=== PATIENT | female | born 1975 | race Caucasian/White ===

== ENCOUNTER → 2017-08-18 14:36 | Outpatient (CLI) | payer OTHER, SELFPAY ==
[2017-08-18 15:17] LABS: Basophils # 0.1 K/mm3 (0-0.2); Basophils % 0.5 % (0.1-2.0); Eosinophils # 0.1 K/mm3 (0.0-0.4); Eosinophils % 1.2 % (0.1-12.0); Hematocrit 37.2 % (37.0-47.0); Hemoglobin 11.5 g/dL (12.2-16.2); Lymphocytes # 2.7 K/mm3 (0.7-4.5); Lymphocytes % 29.2 K/mm3 (10-50); Mean Corpuscular Hemoglobin 25.3 pg (27.0-31.2); Mean Corpuscular Volume 81.7 fl (81-99); Monocytes # 0.6 K/mm3 (0.1-1.0); Monocytes % 5.9 % (1.7-9.3); Neutrophils # 5.9 K/mm3 (1.8-7.8); Neutrophils % 63.2 % (37.0-80.0); Platelet Count 270 K/mm3 (142-424); Red Blood Count 4.55 M/mm3 (4.20-5.40); Red Cell Distribution Width 14.8 % (11.5-17.5); White Blood Count 9.3 K/mm3 (4.8-10.8)
[2017-08-18 15:40] LABS: Alanine Aminotransferase 18 U/L (12-78); Albumin Level 3.4 gm/dL (3.4-5.0); Albumin/Globulin Ratio 1.1 (1.1-1.8); Alkaline Phosphatase 141 U/L (46-116); Anion Gap 11.2 mEq/L (5-15); Aspartate Amino Transferase 18 U/L (15-37); Bilirubin,Total 0.7 mg/dL (0.2-1.0); Blood Urea Nitrogen 8 mg/dL (7-18); Calcium 8.3 mg/dL (8.5-10.1); Carbon Dioxide 28 mmol/L (21.0-32.0); Chloride 107 mmol/L (98-107); Chol/HDL Ratio 2.7 (1-3.5); Cholesterol 107 mg/dL (140-200); Creatinine,Serum 0.65 mg/dL (0.55-1.02); Estimated Glomerular Filt Rate 100 ml/min (>60); Ferritin 7 ng/mL (8-388); GFR (African American) 121 ML/MIN (>60); Globulin 3.2 gm/dl (1.3-3.2); Glucose 157 mg/dL (74-106); HDL Cholesterol 40 mg/dL (29-89); LDL Cholesterol 57 mg/dL (0-130); Potassium 4.2 mmoL/L (3.5-5.1); Sodium 142 mmol/L (136-145); Thyroid Stimulating Hormone 0.13 uIU/ml (0.358-3.740); Total Protein,Serum 6.6 gm/dL (6.4-8.2); Triglycerides 52 mg/dL (30-200); VLDL Cholesterol 10 mg/dL (0-40)
== END ==
PROVIDERS: PCP Internal Medicine Adolescent Medicine; Visit Provider Internal Medicine Adolescent Medicine
DX: D50.9 Iron deficiency anemia, unspecified (principal); E78.5 Hyperlipidemia, unspecified; E11.9 Type 2 diabetes mellitus without complications; E03.9 Hypothyroidism, unspecified
CPT/HCPCS: 36415; 80053; 80061; 82728; 83036; 84443; 85025

== ENCOUNTER → 2017-08-19 11:48 | Outpatient (POV) | payer OTHER, SELFPAY | PROVIDERS: Family Provider Internal Medicine Adolescent Medicine; PCP Internal Medicine Adolescent Medicine; Visit Provider Dentist | DX: Z00.00 Encounter for general adult medical examination without abnormal findings (principal) ==

== ENCOUNTER → 2017-12-02 08:58 | Outpatient (POV) | payer OTHER, SELFPAY | PROVIDERS: Family Provider Internal Medicine Adolescent Medicine; PCP Internal Medicine Adolescent Medicine; Visit Provider Dentist | DX: Z00.00 Encounter for general adult medical examination without abnormal findings (principal) ==

== ENCOUNTER → 2018-01-17 09:15 | Outpatient (CLI) | payer OTHER, SELFPAY | PROVIDERS: Visit Provider Internal Medicine Adolescent Medicine | DX: E11.9 Type 2 diabetes mellitus without complications (principal) | CPT/HCPCS: 36415; 83036 ==

== ENCOUNTER → 2018-03-17 11:50 | Outpatient (POV) | payer OTHER, SELFPAY | PROVIDERS: Family Provider Internal Medicine Adolescent Medicine; PCP Internal Medicine Adolescent Medicine; Visit Provider Dentist | DX: Z00.00 Encounter for general adult medical examination without abnormal findings (principal) ==

== ENCOUNTER → 2018-03-28 13:37 | Outpatient (POV) | payer OTHER, SELFPAY | PROVIDERS: Family Provider Internal Medicine Adolescent Medicine; PCP Internal Medicine Adolescent Medicine; Visit Provider Physician Assistant | DX: Z00.00 Encounter for general adult medical examination without abnormal findings (principal) ==

== ENCOUNTER → 2018-05-30 09:31 | Outpatient (CLI) | payer OTHER, SELFPAY ==
[2018-05-30 09:53] LABS: Basophils # 0.1 K/mm3 (0-0.2); Eosinophils # 0.1 K/mm3 (0.0-0.4); Eosinophils % 1.8 % (0.1-12.0); Hematocrit 38.3 % (37.0-47.0); Hemoglobin 12.2 g/dL (12.2-16.2); Lymphocytes # 2.2 K/mm3 (0.7-4.5); Lymphocytes % 28.4 K/mm3 (10-50); Mean Corpuscular HGB Conc 31.9 g/dL (31.8-35.4); Mean Corpuscular Volume 84.8 fl (81-99); Mean Platelet Volume 7.9 fl (7.4-10.4); Monocytes # 0.5 K/mm3 (0.1-1.0); Monocytes % 6.6 % (1.7-9.3); Neutrophils # 4.9 K/mm3 (1.8-7.8); Neutrophils % 62.3 % (37.0-80.0); Platelet Count 297 K/mm3 (142-424); Red Blood Count 4.51 M/mm3 (4.20-5.40); Red Cell Distribution Width 15.3 % (11.5-17.5); White Blood Count 7.8 K/mm3 (4.8-10.8)
[2018-05-30 11:44] LABS: Anion Gap 11.5 mEq/L (5-15); Blood Urea Nitrogen 11 mg/dL (7-18); Calcium 8.5 mg/dL (8.5-10.1); Carbon Dioxide 29 mmol/L (21.0-32.0); Chloride 103 mmol/L (98-107); Estimated Glomerular Filt Rate 78 ml/min (>60); GFR (African American) 95 ML/MIN (>60); Glucose 95 mg/dL (74-106); Potassium 4.5 mmoL/L (3.5-5.1); Sodium 139 mmol/L (136-145)
[2018-05-30 11:45] LABS: Alanine Aminotransferase 19 U/L (12-78); Albumin Level 3.6 gm/dL (3.4-5.0); Albumin/Globulin Ratio 1.1 (1.1-1.8); Alkaline Phosphatase 140 U/L (46-116); Aspartate Amino Transferase 12 U/L (15-37); Chol/HDL Ratio 2.7 (1-3.5); Cholesterol 125 mg/dL (140-200); Ferritin 8 ng/mL (8-388); Free Thyroxine Index 2.8 ug/dL (5.93-13.13); Globulin 3.3 gm/dl (1.3-3.2); HDL Cholesterol 47 mg/dL (29-89); LDL Cholesterol 65 mg/dL (0-130); Thyroid Stimulating Hormone 4.16 uIU/ml (0.358-3.740); Total Protein,Serum 6.9 gm/dL (6.4-8.2); Triglycerides 66 mg/dL (30-200); Triiodothryronine (T3) Uptake 35 % (31-39); VLDL Cholesterol 13 mg/dL (0-40)
[2018-05-30 11:59] LABS: Hemoglobin A1C 9.7 % (0.0-7.0)
[2018-05-31 09:20] LABS: Iron 64 ug/dL (27-159); UIBC 413 ug/dL (131-425)
[2018-05-31 15:55] LABS: Iron Saturation 13 % (15-55); Vitamin B12 >2000 pg/mL (232-1245)
== END ==
PROVIDERS: PCP Internal Medicine Adolescent Medicine; Visit Provider Internal Medicine Adolescent Medicine
DX: E11.9 Type 2 diabetes mellitus without complications (principal); D50.9 Iron deficiency anemia, unspecified; E03.9 Hypothyroidism, unspecified
CPT/HCPCS: 36415; 80053; 80061; 82607; 82728; 83036; 83540; 83550; 84436; 84443; 84479; 85025

== ENCOUNTER → 2018-12-26 09:09 | Outpatient (CLI) | payer OTHER, SELFPAY ==
[2018-12-26 10:54] LABS: Free Thyroxine Index 1.6 ug/dL (5.93-13.13); T4 (Thyroxine) 5.3 ug/dl (4.7-13.3); Thyroid Stimulating Hormone 11.31 uIU/ml (0.358-3.740); Triiodothryronine (T3) Uptake 31 % (31-39)
== END ==
PROVIDERS: Visit Provider Internal Medicine Adolescent Medicine
DX: E11.9 Type 2 diabetes mellitus without complications (principal); Z79.4 Long term (current) use of insulin; E03.9 Hypothyroidism, unspecified
CPT/HCPCS: 36415; 83036; 84436; 84443; 84479

== ENCOUNTER → 2019-04-06 08:11 | Outpatient (CLI) | payer OTHER, SELFPAY ==
[2019-04-06 08:41] LABS: Basophils % 0.5 % (0.1-2.0); Eosinophils # 0.1 K/mm3 (0.0-0.4); Eosinophils % 1.5 % (0.1-12.0); Hematocrit 34.9 % (37.0-47.0); Hemoglobin 10.7 g/dL (12.2-16.2); Lymphocytes # 1.9 K/mm3 (0.7-4.5); Lymphocytes % 28.1 % (10-50); Mean Corpuscular HGB Conc 30.6 g/dL (31.8-35.4); Mean Corpuscular Hemoglobin 24.9 pg (27.0-31.2); Mean Corpuscular Volume 81.3 fl (81-99); Mean Platelet Volume 7.8 fl (7.4-10.4); Monocytes # 0.6 K/mm3 (0.1-1.0); Monocytes % 8.7 % (1.7-9.3); Neutrophils # 4.2 K/mm3 (1.8-7.8); Neutrophils % 61.1 % (37.0-80.0); Platelet Count 362 K/mm3 (142-424); Red Blood Count 4.29 M/mm3 (4.20-5.40); Red Cell Distribution Width 14.6 % (11.5-17.5); White Blood Count 6.9 K/mm3 (4.8-10.8)
[2019-04-06 10:17] LABS: Alanine Aminotransferase 16 U/L (12-78); Albumin Level 3.4 gm/dL (3.4-5.0); Albumin/Globulin Ratio 1.1 (1.1-1.8); Alkaline Phosphatase 129 U/L (46-116); Aspartate Amino Transferase 12 U/L (15-37); Bilirubin,Total 0.8 mg/dL (0.2-1.0); Blood Urea Nitrogen 10 mg/dL (7-18); Calcium 8.7 mg/dL (8.5-10.1); Carbon Dioxide 28 mmol/L (21.0-32.0); Chloride 104 mmol/L (98-107); Chol/HDL Ratio 2.8 (1-3.5); Cholesterol 91 mg/dL (140-200); Creatinine,Serum 0.71 mg/dL (0.55-1.02); Estimated Glomerular Filt Rate 89 ml/min (>60); GFR (African American) 108 ML/MIN (>60); Glucose 97 mg/dL (74-106); HDL Cholesterol 33 mg/dL (29-89); LDL Cholesterol 46 mg/dL (0-130); Sodium 141 mmol/L (136-145); Thyroid Stimulating Hormone 0.01 uIU/ml (0.358-3.740); Total Protein,Serum 6.4 gm/dL (6.4-8.2); Triglycerides 60 mg/dL (30-200); VLDL Cholesterol 12 mg/dL (0-40)
[2019-04-06 15:28] LABS: Hemoglobin A1C 8.3 % (0.0-7.0)
== END ==
PROVIDERS: Visit Provider Internal Medicine Adolescent Medicine
DX: E11.9 Type 2 diabetes mellitus without complications (principal); E78.5 Hyperlipidemia, unspecified; E03.9 Hypothyroidism, unspecified; Z79.4 Long term (current) use of insulin
CPT/HCPCS: 36415; 80053; 80061; 83036; 84443; 85025

== ENCOUNTER 2020-08-05 09:20 | Emergency (ER) | payer OTHER, SELFPAY ==
[2020-08-05 09:39] VITALS: BP 114/68; PULSE 91; RESP 16; TEMP 37.2; O2SAT 98; BMI 38.7
--- NOTE | 2020-08-05 09:44 | HMH.EDUTC ---
[facility] [place] Disposition Clinical Impression: Exposure to COVID-19 virus, Viral syndrome Disposition: Home, Self-Care Condition on Discharge: Good Instructions: DI for COVID-19 (Suspected or Confirmed ), Preventing the Spread of Coronavirus Discharge Instructions Additional Instructions: Drink plenty of fluids. Take tylenol for pain or fever. Return if you begin to have difficulty breathing. Follow up with your regular doctor. GO TO THE ER FOR ANY WORSENING SYMPTOMS Prescriptions: Ondansetron [Zofran 4mg ODT] 4 mg PO Q8HP PRN #12 tab.rapdis PRN Reason: Nausea Transmission Status: Received by [facility] Benzonatate [Tessalon Perle 100mg Cap] 100 mg PO TIDP PRN #30 cap PRN Reason: Cough Transmission Status: Received by [facility] Referrals: Amilcar Denis MD [Primary Care Provider] - Forms: Work/School Release Time of Disposition: 10:00 Medical Decision Making - Medical Records Medical records reviewed: No: I reviewed the patient's medical records. - Livan Inquiry Pt receiving controlled substance: No Vital Signs: 08/05/20 09:39 08/05/20 09:59 Temperature 98.9 F 98.9 F Temperature Source Oral Pulse Rate 91 H Pulse Rate [Left] 91 H Respiratory Rate 16 16 Blood Pressure 114/68 Blood Pressure [Right Arm] 114/68 Blood Pressure Mean [Right Arm] 83 Blood Pressure Source [Right Arm] Automatic Cuff Blood Pressure Position [Right Arm] Sitting 02 Sat by Pulse Oximetry 98 Oxygen Delivery Method Room Air [facility] [place] HPI - General Stated complaint: covid exposure Time Seen by Provider: 08/05/20 09:45 Mode of Arrival: Ambulatory Source of Information: Patient Limitations: No Limitations Description of Symptoms (Recalled from Triage Doc. by RN): Covid test -symptomatic 1 day-congestion, fatigue, temp HEENT Symptoms (Recalled from RN notes): No Resp Symptoms (Recalled from RN notes): Yes Skin Symptoms (Recalled from RN notes): No MS Symptoms (Recalled from RN notes): Yes Functional Status (Recalled from RN notes): wnl - History of Present Illness Provider Complaint: She c/o sinus congestion, low grade fever, and skin sensitivity for the past 2 days. Her daughter has covid. Her daughter lives with her. - Related Data Home Medications Medication Instructions Recorded Confirmed atorvastatin 40 mg tablet PO 90 Days #90 tab 11/03/18 02/02/19 escitalopram oxalate 10 mg tablet PO 90 Days #90 tab 11/03/18 02/02/19 glimepiride 2 mg tablet PO 90 Days #90 tab 11/03/18 02/02/19 insulin detemir U-100 100 unit/mL SQ 85 Days #30 ml 11/03/18 02/02/19 (3 mL) subcutaneous pen levothyroxine 200 mcg tablet PO 90 Days #90 tab 11/03/18 02/02/19 liraglutide 0.6 mg/0.1 mL (18 mg/3 SQ 90 Days #27 ml 11/03/18 02/02/19 mL) subcutaneous pen injector Previous Rx's Medication Instructions Recorded spironolactone 50 mg tablet 50 mg PO DAILY 30 Days #30 tab 12/25/19 fluconazole 150 mg tablet 150 mg PO Q3D 0 Days #2 tab 01/26/20 Benzonatate [Tessalon Perle 100mg 100 mg PO TIDP PRN #30 cap 08/05/20 Cap] Ondansetron [Zofran 4mg ODT] 4 mg PO Q8HP PRN #12 tab.rapdis 08/05/20 Allergies Allergy/AdvReac Type Severity Reaction Status Date / Time No Known Allergies Allergy Verified 08/05/20 09:45 - Worker's Comp Is this a Worker's Comp case?: No Is this an [facility] Worker's Comp?: No Is this a Kevin Worker's Comp?: No [facility] History - Hepatitis A Screen Drug use history?: No High risk sexual behaviors?: No History of sexually transmitted infection?: No Currently employed?: No Childcare worker?: No Do you have indoor plumbing?: Yes Do you have electricity?: Yes Attestation statement:: This patient has been screened for Hepatitis A risk factors. I have reviewed the patient's past medical history: Yes Medical History: Reports:: Diabetes Mellitus Type 2, Hypertension Other Medical History: Reports: Hypothyroidism, Other Laterality Cases: Right: Arthroscopy Knee, B
[2020-08-05 09:59] VITALS: BP 114/68; PULSE 91; RESP 16; TEMP 37.2; O2SAT 98
== END 2020-08-05 10:12 | disposition home or self-care (01) ==
PROVIDERS: Emergency Provider Nurse Practitioner Family; PCP Internal Medicine Adolescent Medicine
DX: Z20.828 Contact with and (suspected) exposure to other viral communicable diseases (principal); E11.9 Type 2 diabetes mellitus without complications; E03.9 Hypothyroidism, unspecified; I10 Essential (primary) hypertension; Z79.899 Other long term (current) drug therapy
CPT/HCPCS: 99201; U0003

== ENCOUNTER → 2020-12-26 08:25 | Outpatient (CLI) | payer OTHER, SELFPAY ==
[2020-12-26 08:54] LABS: Basophils # 0.1 K/mm3 (0-0.2); Basophils % 0.7 % (0.1-2.0); Eosinophils # 0.3 K/mm3 (0.0-0.4); Eosinophils % 3.2 % (0.1-12.0); Hematocrit 38.2 % (37.0-47.0); Hemoglobin 12.4 g/dL (12.2-16.2); Lymphocytes # 1.4 K/mm3 (0.7-4.5); Lymphocytes % 17.4 % (10-50); Mean Corpuscular HGB Conc 32.4 g/dL (31.8-35.4); Mean Corpuscular Hemoglobin 27.3 pg (27.0-31.2); Mean Corpuscular Volume 84.5 fl (81-99); Mean Platelet Volume 8.1 fl (7.4-10.4); Monocytes # 0.5 K/mm3 (0.1-1.0); Monocytes % 6.8 % (1.7-9.3); Neutrophils # 5.6 K/mm3 (1.8-7.8); Neutrophils % 71.9 % (37.0-80.0); Platelet Count 290 K/mm3 (142-424); Red Blood Count 4.52 M/mm3 (4.20-5.40); White Blood Count 7.9 K/mm3 (4.8-10.8)
[2020-12-26 09:08] LABS: Hemoglobin A1C 10.8 % (4.0-6.0)
[2020-12-26 09:19] LABS: Alanine Aminotransferase 14 U/L (12-78); Albumin Level 3.8 g/dl (3.5-5.0); Albumin/Globulin Ratio 1.5 (1.1-1.8); Alkaline Phosphatase 102 U/L (38-126); Anion Gap 8.9 mEq/L (5-15); Aspartate Amino Transferase 18 U/L (14-36); Bilirubin,Total 1.3 mg/dl (0.2-1.3); Blood Urea Nitrogen 8 mg/dl (7-17); Calcium 8.5 mg/dl (8.4-10.2); Carbon Dioxide 26 mmol/L (22.0-30.0); Chloride 103 mmol/L (98-107); Cholesterol 166 mg/dl (140-200); Estimated Glomerular Filt Rate 108 ml/min (>60); GFR (African American) 130 ML/MIN (>60); Globulin 2.5 g/dL (1.3-3.2); Glucose 232 mg/dl (74-100); HDL Cholesterol 42 mg/dl (40-60); Potassium 3.9 mmoL/L (3.5-5.1); Sodium 134 mmol/L (136-145); Total Protein,Serum 6.3 g/dl (6.3-8.2); Triglycerides 84 mg/dl (30-150); VLDL Cholesterol 17 mg/dL (0-40)
[2020-12-26 09:36] LABS: Direct LDL Cholesterol 104.59 mg/dL (100-129)
== END ==
PROVIDERS: Visit Provider Internal Medicine Adolescent Medicine
DX: E11.9 Type 2 diabetes mellitus without complications (principal); E78.5 Hyperlipidemia, unspecified; E03.9 Hypothyroidism, unspecified; Z79.4 Long term (current) use of insulin
CPT/HCPCS: 36415; 80053; 80061; 83036; 84443; 85025

== ENCOUNTER 2021-06-30 12:03 | Day surgery (SDC) | payer OTHER, SELFPAY ==
[2021-06-30] VITALS (11 sets, daily range): BP systolic 120–152; BP diastolic 66–85; PULSE 57–86; RESP 18; TEMP 36.7; O2SAT 96–100; BMI 39.1
[2021-06-30 12:23] LABS: Coronavirus 19, PCR Not Detected (NotDetected); Influenza A, PCR Not Detected (NotDetected); Influenza B, PCR Not Detected (NotDetected)
--- NOTE | 2021-06-30 12:29 | IR_ITS ---
APPROVED REPORT Patient Location: Outpatient Tank Assembler: MILLI Mathews RT (R) PROCEDURES Left heart catheterization Left ventriculogram Selective coronary angiogram INDICATION Unstable angina Informed consent was obtained prior to the procedure. COMPLICATIONS None Estimated Blood Loss: Less than 10 mls TECHNIQUE One percent lidocaine used to anesthetize the right anterior aspect of the wrist. The right radial artery was accessed via the Seldinger technique. A 6 Occitan sheath was placed in the right radial artery. 2.5 mg of verapamil, 800 mcg of nitroglycerin, 1mg Lidocaine and 5000 U Heparin were given through the arterial sheath. The Poppa 1 catheter was also used to perform left heart catheterization, left ventriculogram and selective coronary angiogram. At the end of the procedure the sheath was removed good hemostasis was achieved using Traclet band, patient was transferred to the postop holding area in stable condition. ANGIOGRAPHIC RESULTS The left main artery Normal The left anterior descending artery Normal The circumflex artery Dominant normal The right coronary artery Nondominant normal The EASON ventriculogram reveals Normal 60% The left ventricular end-diastolic pressure 10 mmHg IMPRESSION Normal coronary arteries Normal ejection fraction Normal left ventricular end-diastolic pressure Noticeably large and abnormal mediastinal granulomatous disease PLAN 1. Start carvedilol and DINAH inhibitors as described in the outpatient clinic note due to patient's diabetes palpitations and hypertension 2. Chest x-ray and CAT scan with and without contrast will be obtained today to evaluate for the large granulomatous disease. I am concerned patient possible sarcoidosis or other granulomatous disease 3. Continue risk factor modification Electronically signed by : Fahad Sanchez MD 06/30/2021 12:57:19
--- NOTE | 2021-06-30 13:23 | XR_ITS ---
PROCEDURE: XR CHEST 2V CLINICAL HISTORY: LUNG MASS COMPARISON: CR CXREM CHEST - EMPLOYEE from 06/24/2015 XA CL LHC W VENTRICLE from 06/30/2021 FINDINGS: Normal heart size. Calcified subcarinal nodes are suspected but not well demonstrated. Chest CT may provide further evaluation. There may also be a small hiatal hernia. The lungs are clear without infiltrates, suspicious nodules, or pleural effusions. No acute bony abnormalities. IMPRESSION: No acute finding. Possible subcarinal calcified nodes and small hiatal hernia Dictated by: Migue Wright MD 06/30/2021 16:14 Migue Wright MD in [facility] 06/30/2021 16:14
== END 2021-06-30 14:57 | disposition home or self-care (01) ==
LOC: CATHLAB 12:03
PROVIDERS: PCP Internal Medicine Adolescent Medicine; Visit Provider Internal Medicine
DX: I25.118 Atherosclerotic heart disease of native coronary artery with other forms of angina pectoris (principal); E11.9 Type 2 diabetes mellitus without complications; E78.5 Hyperlipidemia, unspecified; R94.31 Abnormal electrocardiogram [ECG] [EKG]; Z79.4 Long term (current) use of insulin; Z79.899 Other long term (current) drug therapy; I10 Essential (primary) hypertension; R00.2 Palpitations; R06.00 Dyspnea, unspecified; Z20.822 Contact with and (suspected) exposure to COVID-19
CPT/HCPCS: 71046; 93458; 99152; 99153; C1725; C1769; C9803; J1644; Q9967; U0003; U0005

== ENCOUNTER → 2021-07-01 09:28 | Outpatient (CLI) | payer OTHER, SELFPAY ==
[2021-07-01 09:52] LABS: Blood Urea Nitrogen 7 mg/dl (7-17); Estimated Glomerular Filt Rate 90 ml/min (>60); GFR (African American) 109 ML/MIN (>60)
--- NOTE | 2021-07-01 10:47 | CT_ITS ---
PROCEDURE: CT CHEST WO/W CON CLINCAL INDICATION: granulomatous lung disease COMPARISON: CR CXREM CHEST - EMPLOYEE from 06/24/2015 MG DMSB DIG MAMM-SCREEN MARQUES W/CAD from 05/25/2017 CR XR CHEST 2V from 06/30/2021 TECHNIQUE: IV Contrast: 75ml Isovue 370 Axial images obtained with sagittal and coronal reformats. All CT scans at the facility use one or more dose reduction, viz: automated exposure control, ma/kV adjustment per patient size (including targeted exams where dose is matched to indication, i.e. head), or iterative reconstruction technique. FINDINGS: HEART AND MEDIASTINAL STRUCTURES: Large cluster of calcified nodes is present in the subcarinal region. Small calcified nodes are present in the right hilum. No evidence aortic aneurysm or pulmonary embolus. There is a small hiatal hernia.. LUNGS AND PLEURAL SPACES: There is some minimal thickening of the major fissure superiorly and laterally. No interstitial lung disease is evident. No effusions or infiltrates. No suspicious pulmonary nodules. . BONY STRUCTURES: No acute bony abnormalities apparent. UPPER ABDOMEN: There is a small hiatal hernia. Surgical clips are present at the distal esophageal region the and cardia of the stomach. Status post prior gastric bypass surgery prior cholecystectomy. ADDITIONAL FINDINGS: Small nodes in the axilla. In the right breast inferiorly and medially there is an asymmetric area of soft tissue density. This may merely represent fibroglandular tissue however it is asymmetric compared to the left side therefore, suggest correlation with mammography and right breast ultrasound. IMPRESSION: 1. Large cluster of calcified nodes in the subcarinal region with small nodes in the right hilum suggesting old granulomatous disease. The overall findings are not typical for sarcoidosis although that etiology is not excluded. 2. Prior gastric bypass surgery with small hiatal hernia 3. Asymmetric density medial and inferior right breast. Suggest correlation with mammogram and ultrasound. Dictated by: Migue Wright MD 07/01/2021 14:54 Migue Wright MD in [facility] 07/01/2021 14:54
== END ==
PROVIDERS: Visit Provider Internal Medicine
DX: J84.10 Pulmonary fibrosis, unspecified (principal)
CPT/HCPCS: 36415; 71270; 82565; 84520; Q9967

== ENCOUNTER → 2021-07-17 15:27 | Outpatient (CLI) | payer OTHER, SELFPAY ==
--- NOTE | 2021-07-17 15:28 | MM_ITS ---
PROCEDURE: MM DIG SCREENING MAMM BI W/CAD Digital Breast Tomosynthesis Included CLINICAL INDICATION: screening COMPARISON: MG DMDXUAVR DIG MAMM-DX UNI ADD VIEWS-RT from 05/06/2015 MG DMSB DIG MAMM-SCREEN MARQUES from 05/15/2016 MG DMSB DIG MAMM-SCREEN MARQUES W/CAD from 05/25/2017 TECHNIQUE: Standard CC and MLO images and 3D Tomosynthesis was obtained. R2 CAD reviewed. FINDINGS: There are scattered areas of fibroglandular density There is asymmetry in the inferior aspect of the right breast. This is not significantly changed and is felt to represent fibroglandular tissue. This is likely the cause of the abnormality noted on the recent CT scan. No malignant appearing mass or malignant-appearing microcalcification. In the lateral paracentral aspect of the left breast posteriorly there is of ache nodular density as seen on the CC view measuring approximately 6 mm. This may been present previously but more prominent on today's study due to regression of overlying breast tissue and also better delineated with tomography. This could represent an area of asymmetric tissue or small nodule. Spot compression views, rolled views and straight mL view and left breast ultrasound suggested for further evaluation. IMPRESSION: Small nodular density left lateral paracentral left breast posteriorly. Additional imaging suggested. BI-RAD Category: 0 Need Additional Imaging Evaluation FOLLOW-UP: IMM Immediate Follow-up Recommended (A letter has been sent to the patient regarding results of the study.) Dictated by: Migue Wright MD 07/21/2021 13:49 Migue Wright MD in [facility] 07/21/2021 13:49
== END ==
PROVIDERS: PCP Internal Medicine Adolescent Medicine; Visit Provider Obstetrics & Gynecology
DX: Z12.31 Encounter for screening mammogram for malignant neoplasm of breast (principal)
CPT/HCPCS: 77063; 77067

== ENCOUNTER → 2021-07-21 14:52 | Outpatient (CLI) | payer OTHER, SELFPAY ==
--- NOTE | 2021-07-21 14:55 | US_ITS ---
PROCEDURE: MM DIG MAMM DX UNILAT LT CAD Ultrasound breast left complete CLINICAL INDICATION: ABN MAMM COMPARISON: MG DMSB DIG MAMM-SCREEN MARQUES from 05/15/2016 MG DMSB DIG MAMM-SCREEN MARQUES W/CAD from 05/25/2017 MG MM DIG SCREENING MAMM BI W/CAD from 07/17/2021 US US BREAST LT COMPLETE from 07/21/2021 TECHNIQUE: Spot-compression views performed of the left breast along with left breast ultrasound. FINDINGS: Previously noted nodular density in the deep lateral left breast is not redemonstrated on the spot compression or rolled views. X CC view did demonstrate some nodularity in this region however it may be related overlying fibroglandular tissue. Left breast ultrasound: There is a 4 by 4 mm cyst in the 1 o'clock region of the left breast. No suspicious nodules are evident. Small nodes in the axilla nonspecific. IMPRESSION: Asymmetric area in the lateral aspect of the left breast may correspond to overlying fibroglandular tissue and a small cyst. No suspicious abnormalities. Recommend six-month left-sided mammographic follow-up BI-RAD Category: 3 Probably Benign Finding Short Term Follow-Up FOLLOW-UP: 6M 6 Month Follow-up (A letter has been sent to the patient regarding results of the study.) Dictated by: Migue Wright MD 07/24/2021 13:38 Migue Wright MD in [facility] 07/24/2021 13:38
== END ==
PROVIDERS: PCP Internal Medicine Adolescent Medicine; Visit Provider Radiology Diagnostic Radiology
DX: R92.8 Other abnormal and inconclusive findings on diagnostic imaging of breast (principal)
CPT/HCPCS: 76641; 77061; 77065; G0279

== ENCOUNTER 2021-09-24 11:57 | Emergency (ER) | payer OTHER, SELFPAY ==
--- NOTE | 2021-09-24 12:13 | HMH.EDUTC ---
[facility] [place] Disposition Clinical Impression: Viral syndrome Diabetes mellitus Qualifiers: Diabetes mellitus type: type 2 Diabetes mellitus lab rep insulin use: with shelter use Diabetes mellitus complication status: with other specified complication Qualified Code(s): E11.69 - Type 2 diabetes mellitus with other specified complication Disposition: Home, Self-Care Condition on Discharge: Good Instructions: DI for Viral Syndrome, DI for COVID-19 (Suspected or Confirmed ), Preventing the Spread of Coronavirus Discharge Instructions Additional Instructions: Drink plenty of fluids. Take tylenol for pain or fever. Follow up with your regular doctor. GO TO THE ER FOR ANY WORSENING SYMPTOMS Quarantine until you know the results of your covid-19 test. Notify your school or workplace of your results and follow their instructions regarding return to work/school. Prescriptions: Promethazine/Dextromethorphan [Promethazine-Dm Syrup] 5 ml PO Q6HP PRN #240 ml PRN Reason: Cough Transmission Status: Pending to [facility] Ondansetron [Zofran 4mg ODT] 4 mg PO Q8HP PRN #20 tab PRN Reason: Nausea Transmission Status: Pending to [facility] Benzonatate [Benzonatate 100mg cap] 100 mg PO TIDP PRN #30 cap PRN Reason: Cough Transmission Status: Pending to [facility] Referrals: Orville Gonzalez MD [Primary Care Provider] - Forms: Work/School Release Time of Disposition: 13:04 Medical Decision Making - Medical Records Medical records reviewed: No: I reviewed the patient's medical records. - Livan Inquiry Pt receiving controlled substance: No Vital Signs: 09/24/21 12:15 Temperature 98 F Temperature Source Oral Pulse Rate [Left] 87 Respiratory Rate 18 Blood Pressure [Right Arm] 126/91 H Blood Pressure Mean [Right Arm] 102 02 Sat by Pulse Oximetry 99 - Lab Data Lab results reviewed: Yes: I reviewed the patient's lab results. Lab Results 09/24/21 12:14: Group A Strep Rapid Negative Orders (Tests/Meds): ORDERS Category Date Time Status Full Resp Panel w/COVID ([facility]) Routine Lab 09/24/21 12:07 Received Strep Screen Confirmation Stat Micro 09/24/21 12:14 Received [facility] [place] HPI - General Stated complaint: congestion, body aches, sore throat Time Seen by Provider: 09/24/21 12:13 - History of Present Illness Provider Complaint: She states that yesterday morning she started sneezing and having a runny nose. She thought it was probably allergy symptoms. But, yesterday evening, she began having significant body aches, chilling, marked fatigue, sore throat, and she has felt very bad since then. She has some mild chest tightness when she breathes deep, but she denies any shortness of breath or chest pain. She has been fully vaccinated against covid-19. She was exposed to covid-19 about 5 days ago by her daughter coming home to visit, then coming down with covid-19 while she was visiting. - Related Data Home Medications Medication Instructions Recorded Confirmed atorvastatin 40 mg tablet 40 mg PO DAILY 90 Days #90 tab 06/30/21 08/12/21 insulin degludec 100 46 unit SQ DAILY ml 06/30/21 08/12/21 unit-liraglutide 3.6 mg/mL(3 mL) subcutaneous pen levothyroxine 200 mcg tablet 150 mcg PO DAILY 90 Days #68 tab 06/30/21 08/12/21 loratadine 10 mg tablet 10 mg PO DAILY tab 06/30/21 08/12/21 omeprazole 40 mg capsule,delayed 40 mg PO DAILY cap 06/30/21 08/12/21 release levonorgestrel 20 mcg/24 hours (7 INTRAUTERI 08/12/21 08/12/21 yrs) 52 mg intrauterine device Previous Rx's Medication Instructions Recorded Ondansetron [Zofran 4mg ODT] 4 mg PO Q8HP PRN #12 tab.rapdis 08/05/20 spironolactone 50 mg tablet 50 mg PO DAILY 30 Days #30 tab 02/06/21 carvedilol 6.25 mg tablet 6.25 mg PO BID #60 tab 06/30/21 ramipril 5 mg capsule 5 mg PO DAILY #30 cap 06/30/21 fluconazole 150 mg tablet 150 mg PO ONCE 0 Days #2 tab 09/04/21 Benzonatate [Benzonatate 100mg
[2021-09-24 12:15] VITALS: BP 126/91; PULSE 87; RESP 18; TEMP 36.6; O2SAT 99; BMI 38.7
[2021-09-24 12:36] LABS: Adenovirus,PCR Not Detected (NotDetected); Bordetella Pertussis Not Detected (NotDetected); Chlamydophila Pneumoniae, PCR Not Detected (NotDetected); Coronavirus 19, PCR Not Detected (NotDetected); Coronavirus 229E Not Detected (NotDetected); Coronavirus OC43 Not Detected (NotDetected); Coronovirus HKU1,PCR Not Detected (NotDetected); Human Metapneumovirus Not Detected (NotDetected); Influenza A, PCR Not Detected (NotDetected); Influenza AH1, 2009 Not Detected (NotDetected); Influenza AH1, PCR Not Detected (NotDetected); Influenza AH3,PCR Not Detected (NotDetected); Influenza B, PCR Not Detected (NotDetected); Mycoplasma Pneumoniae, PCR Not Detected (NotDetected); Parainfluenza 1, PCR Not Detected (NotDetected); Parainfluenza 2, PCR Not Detected (NotDetected); Parainfluenza 3, PCR Not Detected (NotDetected); Parainfluenza 4, PCR Not Detected (NotDetected); Respiratory Syncytial Virus Not Detected (NotDetected); Rhinovirus/Enterovirus Not Detected (NotDetected)
[2021-09-24 12:57] LABS: Strep Scrn Group A (Rapid) Negative (Negative)
[2021-09-24 13:16] VITALS: BP 126/91; PULSE 87; RESP 18; TEMP 36.6
[2021-09-24 15:03] LABS: Coronavirus NL63 Detected (NotDetected)
== END 2021-09-24 13:18 | disposition home or self-care (01) ==
PROVIDERS: Emergency Provider Nurse Practitioner Family; PCP Internal Medicine Adolescent Medicine
DX: B34.2 Coronavirus infection, unspecified (principal); E11.69 Type 2 diabetes mellitus with other specified complication; I10 Essential (primary) hypertension; E03.9 Hypothyroidism, unspecified
CPT/HCPCS: 87430; 87581; 87632; 87798; 99203; C9803; G0463; U0003; U0005

== ENCOUNTER → 2022-02-13 14:16 | Outpatient (CLI) | payer OTHER, SELFPAY ==
--- NOTE | 2022-02-13 14:17 | US_ITS ---
PROCEDURE INFORMATION: Exam: US Left Breast, Complete MG Left Diagnostic Breast Tomosynthesis Exam date and time: 02/13/2022 2:13 PM Age: 46 years old Clinical indication: Six-month follow-up for left lateral breast asymmetry and left breast cyst at 1 o'clock, since 07/24/2021. TECHNIQUE: Imaging protocol: Complete ultrasound of all four quadrants of the Left breast and the retroareolar regions, including ultrasound of the axilla when performed. Left Diagnostic tomosynthesis and 2D mammography including computer-aided detection (CAD) when performed. Unilateral or bilateral exam. Spot compression views added COMPARISON: 1. MG MM DIG MAMM DX UNILAT LT CAD 07/21/2021 2:54 PM 2. MG MM DIG SCREENING MAMM BI W/CAD 07/17/2021 3:26 PM 3. MG DMSB DIG MAMM-SCREEN MARQUES W/CAD 05/25/2017 10:10 AM 4. MG DMSB DIG MAMM-SCREEN MARQUES 05/15/2016 8:21 AM FINDINGS: . MAMMOGRAPHY: Breast composition: There are scattered areas of fibroglandular density. Mass: None. Architectural distortion: None. Calcifications: No suspicious calcifications. Asymmetric density: Stable 0.5 cm focal asymmetry/asymmetrically dense breast tissue with interspersed fat in the upper outer quadrant middle to posterior 3rd, similar to 05/25/2017. No developing asymmetry. Skin thickening: None. Axillary adenopathy: None. ULTRASOUND: Left sonography, all 4 quadrants, retroareolar and axilla demonstrates at 1 o'clock 2 cm from the nipple, a cyst with thin septation measuring 0.5 cm which is a little larger than 07/21/2021 when it measured 0.3 cm. Sonographically unremarkable left axillary lymph node. IMPRESSION: Probably benign findings, suggest left diagnostic spot compression and targeted left breast ultrasound when the patient returns for her bilateral mammogram in July 2022, unless otherwise clinically indicated. ASSESSMENT: BI-RADS Category 3: Probably benign
== END ==
PROVIDERS: PCP Internal Medicine Adolescent Medicine; Visit Provider Obstetrics & Gynecology
DX: N63.21 Unspecified lump in the left breast, upper outer quadrant (principal)
CPT/HCPCS: 76641; 77061; 77065; G0279

== ENCOUNTER 2022-02-25 08:20 | Emergency (ER) | payer OTHER, SELFPAY ==
--- NOTE | 2022-02-25 08:24 | PC.NURSE ---
pt provided with paperwork to fill out
--- NOTE | 2022-02-25 08:27 | PC.NURSE ---
pt brought back to room 2
--- NOTE | 2022-02-25 08:27 | HMH.EDUTC ---
[facility] [place] Disposition Clinical Impression: Exposure to COVID-19 virus, Viral syndrome Sinusitis Qualifiers: Sinusitis location: unspecified location Chronicity: acute Recurrence: non-recurrent Qualified Code(s): J01.90 - Acute sinusitis, unspecified Disposition: Home, Self-Care Condition on Discharge: Good Instructions: DI for Sinusitis, DI for COVID-19 (Suspected or Confirmed ), Preventing the Spread of Coronavirus Discharge Instructions Additional Instructions: Drink plenty of fluids. Take tylenol or ibuprofen for pain or fever. Take the medications as directed. Follow up with your regular doctor. GO TO THE ER FOR ANY WORSENING SYMPTOMS Quarantine until you know the results of your covid-19 test. Notify your school or workplace of your results and follow their instructions regarding return to work/school. Prescriptions: Ondansetron [Zofran 4mg ODT] 4 mg PO Q8HP PRN #20 tab PRN Reason: Nausea Transmission Status: Received by [facility] Benzonatate [Benzonatate 100mg cap] 100 mg PO TIDP PRN #30 cap PRN Reason: Cough Transmission Status: Received by [facility] Azithromycin [Z-Erik 250mg Tab*] 250 mg PO UD DOSE PK #6 tab Transmission Status: Received by [facility] Referrals: Orville Gonzalez MD [Primary Care Provider] - Time of Disposition: 08:44 Medical Decision Making - Medical Records Medical records reviewed: No: I reviewed the patient's medical records. - Livan Inquiry Pt receiving controlled substance: No Vital Signs: 02/25/22 08:33 02/25/22 08:59 Temperature 98.2 F 98.2 F Temperature Source Oral Oral Pulse Rate 84 Pulse Rate [Left Radial] 84 Respiratory Rate 17 17 Blood Pressure 114/70 Blood Pressure [Right Arm] 114/70 Blood Pressure Mean [Right Arm] 84 02 Sat by Pulse Oximetry 97 Oxygen Delivery Method Room Air - Lab Data Lab results reviewed: Yes: I reviewed the patient's lab results. Lab Results 02/25/22 08:48: Strep Scn Rapid Clinic Negative Orders (Tests/Meds): ORDERS Category Date Time Status Covid-19 Nasal PCR ([facility]) Routine Lab 02/25/22 08:31 Stop Req Rapid PCR Covid and Flu A/B Stat Lab 02/25/22 08:39 Ordered Strep Screen Confirmation Stat Micro 02/25/22 08:48 Received [facility] [place] HPI - General Stated complaint: cough,fatigue,congestion,achy;fever Time Seen by Provider: 02/25/22 08:27 - History of Present Illness Provider Complaint: She states that she started feeling bad yesterday evening. Her symptoms began with her feeling more fatigued than normal. Then she began to run a fever and have a cough through the night. - Related Data Home Medications Medication Instructions Recorded Confirmed atorvastatin 40 mg tablet 40 mg PO DAILY 90 Days #90 tab 06/30/21 08/12/21 insulin degludec 100 46 unit SQ DAILY ml 06/30/21 08/12/21 unit-liraglutide 3.6 mg/mL(3 mL) subcutaneous pen levothyroxine 200 mcg tablet 150 mcg PO DAILY 90 Days #68 tab 06/30/21 08/12/21 loratadine 10 mg tablet 10 mg PO DAILY tab 06/30/21 08/12/21 omeprazole 40 mg capsule,delayed 40 mg PO DAILY cap 06/30/21 08/12/21 release levonorgestrel 20 mcg/24 hours (7 INTRAUTERI 08/12/21 08/12/21 yrs) 52 mg intrauterine device Previous Rx's Medication Instructions Recorded Ondansetron [Zofran 4mg ODT] 4 mg PO Q8HP PRN #12 tab.rapdis 08/05/20 spironolactone 50 mg tablet 50 mg PO DAILY 30 Days #30 tab 02/06/21 carvedilol 6.25 mg tablet 6.25 mg PO BID #60 tab 06/30/21 ramipril 5 mg capsule 5 mg PO DAILY #30 cap 06/30/21 fluconazole 150 mg tablet 150 mg PO ONCE 0 Days #2 tab 09/04/21 Benzonatate [Benzonatate 100mg 100 mg PO TIDP PRN #30 cap 09/24/21 cap] Ondansetron [Zofran 4mg ODT] 4 mg PO Q8HP PRN #20 tab 09/24/21 Promethazine/Dextromethorphan 5 ml PO Q6HP PRN #240 ml 09/24/21 [Promethazine-Dm Syrup] Azithromycin [Z-Erik 250mg Tab*] 250 mg PO UD DOSE PK #6 tab 02/25/22 Benzonatate [Benzonatate 100mg 100 mg
[2022-02-25 08:33] VITALS: BP 114/70; PULSE 84; RESP 17; TEMP 36.8; O2SAT 97; BMI 37.1
--- NOTE | 2022-02-25 08:37 | PC.NURSE ---
[facility] provider at the bedside
--- NOTE | 2022-02-25 08:40 | PC.NURSE ---
per [facility] request, covid swab order changed to rapid. spoke with franck in the lab who states she has 6 covid swabs ahead to run and would run this swab as soon as she could. [facility] notified.
--- NOTE | 2022-02-25 08:45 | PC.NURSE ---
provider at the bedside to discuss POC
[2022-02-25 08:56] LABS: UTC Strep Screen (Rapid) Negative (Negative)
[2022-02-25 08:59] VITALS: BP 114/70; PULSE 84; RESP 17; TEMP 36.8; O2SAT 97
[2022-02-25 09:39] LABS: Influenza A, PCR Not Detected (NotDetected); Influenza B, PCR Not Detected (NotDetected)
[2022-02-25 09:57] LABS: Coronavirus 19, PCR Detected (NotDetected)
== END 2022-02-25 09:00 | disposition home or self-care (01) ==
PROVIDERS: Emergency Provider Nurse Practitioner Family; PCP Internal Medicine Adolescent Medicine
DX: U07.1 COVID-19 (principal); J01.90 Acute sinusitis, unspecified
CPT/HCPCS: 87880; 99212; C9803; G0463; U0003; U0005

== ENCOUNTER → 2022-05-26 11:01 | Outpatient (CLI) | payer OTHER, SELFPAY ==
[2022-05-26 11:22] LABS: Basophils # 0.1 K/mm3 (0-0.2); Eosinophils # 0.1 K/mm3 (0.0-0.4); Eosinophils % 0.8 % (0.1-12.0); Hematocrit 39.3 % (37.0-47.0); Hemoglobin 12.6 g/dL (12.2-16.2); Lymphocytes # 2.3 K/mm3 (0.7-4.5); Lymphocytes % 28.3 % (10-50); Mean Corpuscular Hemoglobin 27.3 pg (27.0-31.2); Mean Corpuscular Volume 85.2 fl (81-99); Mean Platelet Volume 9.1 fl (7.4-10.4); Monocytes # 0.6 K/mm3 (0.1-1.0); Monocytes % 6.7 % (1.7-9.3); Neutrophils # 5.2 K/mm3 (1.8-7.8); Neutrophils % 63.2 % (37.0-80.0); Platelet Count 314 K/mm3 (142-424); Red Blood Count 4.62 M/mm3 (4.20-5.40); Red Cell Distribution Width 15.9 % (11.5-17.5); White Blood Count 8.3 K/mm3 (4.8-10.8)
[2022-05-26 11:29] LABS: Chloride 99 mmol/L (98-107)
[2022-05-26 11:30] LABS: Potassium 3.9 mmoL/L (3.5-5.1); Sodium 138 mmol/L (136-145)
[2022-05-26 11:32] LABS: Alanine Aminotransferase 18 U/L (12-78); Albumin Level 4.2 g/dl (3.5-5.0); Albumin/Globulin Ratio 1.4 (1.1-1.8); Alkaline Phosphatase 143 U/L (38-126); Anion Gap 12.9 mEq/L (5-15); Aspartate Amino Transferase 28 U/L (14-36); Bilirubin,Total 1.5 mg/dl (0.2-1.3); Blood Urea Nitrogen 8 mg/dl (7-17); Carbon Dioxide 30 mmol/L (22.0-30.0); Estimated Glomerular Filt Rate 107 ml/min (>60); GFR (African American) 130 ML/MIN (>60); Globulin 2.9 g/dL (1.3-3.2); Total Protein,Serum 7.1 g/dl (6.3-8.2)
[2022-05-26 11:33] LABS: Calcium 8.5 mg/dl (8.4-10.2); Glucose 170 mg/dl (74-100)
[2022-05-26 12:05] LABS: Troponin I < 0.01 ng/ml (0.00-0.034)
[2022-05-27 16:20] LABS: Free T4 (Free Thyroxine) 1.59 ng/dl (0.78-2.19)
== END ==
PROVIDERS: PCP Nurse Practitioner Family; Visit Provider Nurse Practitioner Family
DX: R06.00 Dyspnea, unspecified (principal); R07.9 Chest pain, unspecified; R55 Syncope and collapse; R94.31 Abnormal electrocardiogram [ECG] [EKG]
CPT/HCPCS: 36415; 80053; 84439; 84443; 84484; 85025; 93306

== ENCOUNTER → 2022-07-13 08:42 | Outpatient (CLI) | payer OTHER, SELFPAY ==
[2022-07-13 09:34] LABS: Chol/HDL Ratio 3.2 (1-3.5); Cholesterol 133 mg/dl (140-200); HDL Cholesterol 42 mg/dl (40-60); Triglycerides 113 mg/dl (30-150); VLDL Cholesterol 23 mg/dL (0-40)
[2022-07-13 09:45] LABS: Direct LDL Cholesterol 65.36 mg/dL (100-129)
[2022-07-13 10:16] LABS: Hemoglobin A1C 9.4 % (4.0-6.0)
== END ==
PROVIDERS: PCP Nurse Practitioner Family; Visit Provider Nurse Practitioner Family
DX: Z00.00 Encounter for general adult medical examination without abnormal findings (principal); Z79.899 Other long term (current) drug therapy
CPT/HCPCS: 36415; 80061; 83036

== ENCOUNTER → 2022-07-29 14:50 | Outpatient (CLI) | payer OTHER, SELFPAY ==
--- NOTE | 2022-07-29 14:54 | MM_ITS ---
PROCEDURE INFORMATION: Exam: US Left Breast, Complete, Abscess Evaluation MG Bilateral Diagnostic Breast Tomosynthesis Exam date and time: 07/29/2022 2:44 PM Age: 46 years old Clinical indication: Short-term radiographic followup; Left breast; probable cystic change TECHNIQUE: Imaging protocol: Left Ultrasound of the breast with image documentation. All quadrants and retroareolar regions evaluated. Exam focused on the search and evaluation for abscess. Exam is an emergent request and a non-BIRADS study. Bilateral Diagnostic tomosynthesis and 2D mammography including computer-aided detection (CAD) when performed. Unilateral or bilateral exam. COMPARISON: 1. MG MM DIG MAMM DX UNILAT LT CAD 02/13/2022 2:13 PM 2. MG MM DIG MAMM DX UNILAT LT CAD 07/21/2021 2:54 PM FINDINGS: MAMMOGRAPHY: The breast tissue is composed of scattered areas of fibroglandular density. There is no stellate mass, architectural distortion or suspicious microcalcifications in either breast to suggest malignancy. No skin thickening or axillary adenopathy. ULTRASOUND: Sonographic images of the left 1 o'clock axis 2 cm from the nipple demonstrates a 0.3 cm cyst. No other findings in the remainder of the breast. No axillary adenopathy. IMPRESSION: No mammographic or sonographic evidence of malignancy. Annual bilateral mammographic screening is recommended unless otherwise clinically indicated. ASSESSMENT: BI-RADS Category 2: Benign
== END ==
PROVIDERS: PCP Nurse Practitioner Family; Visit Provider Obstetrics & Gynecology
DX: N63.20 Unspecified lump in the left breast, unspecified quadrant (principal)
CPT/HCPCS: 76641; 77062; 77066; G0279

== ENCOUNTER → 2022-12-17 08:43 | Outpatient (CLI) | payer OTHER, SELFPAY ==
[2022-12-17 09:33] LABS: Basophils % 0.6 % (0.1-2.0); Eosinophils # 0.1 K/mm3 (0.0-0.4); Eosinophils % 1.9 % (0.1-12.0); Hematocrit 40.9 % (37.0-47.0); Hemoglobin 13.6 g/dL (12.2-16.2); Lymphocytes # 2.2 K/mm3 (0.7-4.5); Mean Corpuscular HGB Conc 33.2 g/dL (31.8-35.4); Mean Corpuscular Hemoglobin 30.4 pg (27.0-31.2); Mean Corpuscular Volume 91.4 fl (81-99); Mean Platelet Volume 8.9 fl (7.4-10.4); Monocytes # 0.3 K/mm3 (0.1-1.0); Neutrophils # 3.5 K/mm3 (1.8-7.8); Neutrophils % 57.5 % (37.0-80.0); Platelet Count 238 K/mm3 (142-424); Red Blood Count 4.48 M/mm3 (4.20-5.40); Red Cell Distribution Width 13.5 % (11.5-17.5); White Blood Count 6.1 K/mm3 (4.8-10.8)
[2022-12-17 09:44] LABS: Alanine Aminotransferase 18 U/L (12-78); Albumin/Globulin Ratio 1.7 (1.1-1.8); Alkaline Phosphatase 142 U/L (38-126); Anion Gap 15.8 mEq/L (5-15); Aspartate Amino Transferase 24 U/L (14-36); Bilirubin,Total 1.5 mg/dl (0.2-1.3); Blood Urea Nitrogen 8 mg/dl (7-17); Calcium 8.7 mg/dl (8.4-10.2); Carbon Dioxide 29 mmol/L (22.0-30.0); Chloride 99 mmol/L (98-107); Chol/HDL Ratio 2.4 (1-3.5); Cholesterol 112 mg/dl (140-200); Estimated Glomerular Filt Rate 89 ml/min (>60); GFR (African American) 108 ML/MIN (>60); Globulin 2.4 g/dL (1.3-3.2); Glucose 105 mg/dl (74-100); HDL Cholesterol 47 mg/dl (40-60); Potassium 3.8 mmoL/L (3.5-5.1); Sodium 140 mmol/L (136-145); Total Protein,Serum 6.4 g/dl (6.3-8.2); Triglycerides 96 mg/dl (30-150); VLDL Cholesterol 19 mg/dL (0-40)
[2022-12-17 09:52] LABS: Iron 109 ug/dL (37-170)
[2022-12-17 09:55] LABS: Direct LDL Cholesterol 53.22 mg/dL (100-129)
[2022-12-17 10:00] LABS: Hemoglobin A1C 6.8 % (4.0-6.0)
[2022-12-17 10:01] LABS: Total Iron Binding Capacity 426 ug/dL (265-497)
[2022-12-17 10:15] LABS: Thyroid Stimulating Hormone 8.82 uIU/mL (0.465-4.68)
== END ==
PROVIDERS: PCP Nurse Practitioner Family; Visit Provider Nurse Practitioner Family
DX: E11.9 Type 2 diabetes mellitus without complications (principal); E78.5 Hyperlipidemia, unspecified; E03.9 Hypothyroidism, unspecified; D50.9 Iron deficiency anemia, unspecified; Z79.4 Long term (current) use of insulin
CPT/HCPCS: 36415; 80053; 80061; 83036; 83540; 83550; 84443; 85025

== ENCOUNTER → 2023-05-20 08:44 | Outpatient (CLI) | payer OTHER, SELFPAY ==
[2023-05-20 10:15] LABS: Basophils # 0.1 K/mm3 (0-0.2); Eosinophils # 0.1 K/mm3 (0.0-0.4); Eosinophils % 1.5 % (0.1-12.0); Hematocrit 43.7 % (37.0-47.0); Hemoglobin 14.9 g/dL (12.2-16.2); Lymphocytes # 2.4 K/mm3 (0.7-4.5); Lymphocytes % 37.8 % (10-50); Mean Corpuscular HGB Conc 34.1 g/dL (31.8-35.4); Mean Corpuscular Hemoglobin 32.5 pg (27.0-31.2); Mean Corpuscular Volume 95.2 fl (81-99); Mean Platelet Volume 9.1 fl (7.4-10.4); Monocytes # 0.4 K/mm3 (0.1-1.0); Monocytes % 5.8 % (1.7-9.3); Neutrophils # 3.5 K/mm3 (1.8-7.8); Neutrophils % 53.9 % (37.0-80.0); Platelet Count 296 K/mm3 (142-424); Red Blood Count 4.59 M/mm3 (4.20-5.40); Red Cell Distribution Width 13.6 % (11.5-17.5); White Blood Count 6.4 K/mm3 (4.8-10.8)
[2023-05-20 11:05] LABS: Hemoglobin A1C 6.8 % (4.0-6.0)
[2023-05-20 11:21] LABS: Alanine Aminotransferase 18 U/L (12-78); Albumin Level 4.4 g/dl (3.5-5.0); Albumin/Globulin Ratio 1.6 (1.1-1.8); Alkaline Phosphatase 116 U/L (38-126); Aspartate Amino Transferase 25 U/L (14-36); Bilirubin,Total 1.4 mg/dl (0.2-1.3); Blood Urea Nitrogen 10 mg/dl (7-17); Calcium 9.1 mg/dl (8.4-10.2); Carbon Dioxide 30 mmol/L (22.0-30.0); Chloride 102 mmol/L (98-107); Chol/HDL Ratio 3.4 (1-3.5); Cholesterol 185 mg/dl (140-200); Estimated Glomerular Filt Rate 77 ml/min (>60); GFR (African American) 93 ML/MIN (>60); Globulin 2.8 g/dL (1.3-3.2); Glucose 91 mg/dl (74-100); HDL Cholesterol 55 mg/dl (40-60); Sodium 140 mmol/L (136-145); Total Protein,Serum 7.2 g/dl (6.3-8.2); Triglycerides 89 mg/dl (30-150); VLDL Cholesterol 18 mg/dL (0-40)
[2023-05-20 18:14] LABS: Iron 77 ug/dL (37-170)
[2023-05-20 18:28] LABS: Total Iron Binding Capacity 468 ug/dL (265-497)
== END ==
PROVIDERS: PCP Internal Medicine Adolescent Medicine; Visit Provider Nurse Practitioner Family
DX: Z00.00 Encounter for general adult medical examination without abnormal findings (principal); E11.9 Type 2 diabetes mellitus without complications; E03.9 Hypothyroidism, unspecified; D50.9 Iron deficiency anemia, unspecified
CPT/HCPCS: 36415; 80053; 80061; 83036; 83540; 83550; 84443; 85025

== ENCOUNTER 2023-11-16 16:31 | Outpatient (POV) | payer OTHER, SELFPAY | END 2023-11-16 23:59 | disposition home or self-care (01) | LOC: SC 16:32 | PROVIDERS: PCP Internal Medicine Adolescent Medicine; Visit Provider Dermatology | DX: Z00.00 Encounter for general adult medical examination without abnormal findings (principal) ==

== ENCOUNTER 2023-11-30 13:50 | Emergency (ER) | payer OTHER, SELFPAY ==
[2023-11-30 13:55] VITALS: BP 122/83; PULSE 102; RESP 18; TEMP 36.9; O2SAT 100; BMI 31.7
--- NOTE | 2023-11-30 14:11 | PC.NURSE ---
Sent full panel to lab via tube system
--- NOTE | 2023-11-30 14:15 | ED_ITS ---
Discharge Plan Disposition Patient Disposition: Home, Self-Care Condition: Good Prescriptions Prescriptions: No Action levothyroxine 200 mcg tablet 150 mcg PO DAILY 90 Days Qty: 68 Patient Comments: TAKE 1 TABLET BY MOUTH EVERY DAY Mirena 20 mcg/24 hours (7 yrs) 52 mg intrauterine device See Rx Instructions .ROUTE .COMPLEX Rx Instructions: IUD multivitamin [Daily Multi-Vitamin] Tablet 1 tab PO DAILY spironolactone 50 mg tablet 50 mg PO BID Mounjaro 7.5 mg/0.5 mL pen injector See Rx Instructions .ROUTE .COMPLEX Patient Comments: INJECT 7.5mg SUBCUTANEOUSLY ONCE A WEEK DIRECTED Rx Instructions: INJECT 7.5mg SUBCUTANEOUSLY ONCE A WEEK DIRECTED Referrals Follow up/Referrals: Amilcar Denis MD [Primary Care Provider] - See instructions Activity Restrictions/Add. Instructions Additional Instructions/Restrictions: *Monitor Temp, Over the counter Motrin or Tylenol as directed/as needed Tylenol every 4 hours and Motrin every 6 hours (as long as your family doctor has told you that you can take it) for fever or pain. and straight to ER if unable to lower temp less than 101.0 after medication given *Warm salt water gargles may help to soothe the throat *Make sure to drink plenty of fluids to stay hydrated *Sleep elevated *Cool Mist Humidifier/Vaporizer may help with nasal congestion and cough Get plenty of rest Your throat swab was sent for culture. Those results are typically sent to your primary care. Be sure to follow up in 2-3 days with your family doctor/primary care physician if no improvement so they can review those result and treat if necessary. If you don?t have a primary care doctor, I recommend you get one but in the mean time, you will have to return to a walk in clinic Follow up IMMEDIATELY for new or worsening symptoms or no Noticeable improvement over the next 48-72 hours. 911 for difficulty breathing or swallowing You were tested for today for Upper Respiratory Panel with COVID19 your test result should be back in the next 24hours, you may check your results on the [facility] Clinical Impressions Clinical Impression: COVID-19 Instructions Patient Instructions: DI for COVID-19 (Suspected or Confirmed ) Discharge ED Provider: Lori White [facility] HPI General Stated complaint: body aches, chills Mode of Arrival: Ambulatory Source of Information: Patient Limitations: No Limitations Time Seen by Provider: 11/30/23 14:15 Description of Symptoms (Recalled from Triage Doc. by RN): Pt's symptoms are body aches, chills, fatigue, and congestion. HEENT Symptoms (Recalled from RN notes): Yes Resp Symptoms (Recalled from RN notes): No Skin Symptoms (Recalled from RN notes): No MS Symptoms (Recalled from RN notes): No Functional Status (Recalled from RN notes): n/a History of Present Illness Provider Complaint: Patient states she is not feeling well, states that she has been having body aches, chills, congestion and fatigue States today she has not been feeling well and as the day went on she continued to feel worse so she came in to get checked Related Data Home Medications Medication Instructions Recorded Confirmed levothyroxine 200 mcg tablet 150 mcg PO DAILY 90 days #68 tabs 06/30/21 11/30/23 levonorgestrel 21 mcg/24 hours (8 See Rx Instructions .Route .COMPLEX 08/12/21 11/30/23 yrs) 52 mg intrauterine device (Mirena) multivitamin (Daily Multi-Vitamin 1 tab PO DAILY 12/10/22 11/30/23 tablet) spironolactone 50 mg tablet 50 mg PO BID 12/10/22 11/30/23 tirzepatide 7.5 mg/0.5 mL See Rx Instructions .Route .COMPLEX 11/30/23 11/30/23 subcutaneous pen injector (Mounjaro) Allergies Allergy/AdvReac Type Severity Reaction Status Date / Time No Known Allergies Allergy Verified 11/30/23 14:15 Worker's Comp Is this a Worker's Comp case?: [facility] Disclaimer: The information contained in this section may have been updated after the hyun barillas was seen, as this information can be updated by other users. Medical History Abnormal EKG Atypical angina Diabetes mellitus Dyspnea HLD (hyperlipidemia) Palpitations Surgical History History of Beltran-en-Y gastric bypass S/P dilatation of esophageal stricture Social History Smoking Status: Never smoker second hand exposure: No alcohol intake: never current occupational status: employed Travel in the last 8 weeks: None household members: spouse and children housing: house current occupational exposures/hazards: Yes caffeine: Yes ROS Obtained: Yes All systems reviewed & no additional complaints except as documented and Yes Systems reviewed as appropriate & no additional complaints except as documented Constitutional Constitutional: Reports system reviewed and no additional complaints, except as documented, Reports as per HPI, Reports body ache, Reports chills and Reports fatigue ENT Ears, Nose, Mouth, and Throat: Reports system reviewed and no additional complaints, except as documented and Reports as per HPI Cardiovascular Cardiovascular: Reports system reviewed and no additional complaints, except as documented and Reports as per HPI Respiratory Respiratory: Reports system reviewed and no additional complaints, except as documented, Reports as per HPI, Denies shortness of breath and Denies wheezing Gastrointestinal Gastrointestingal: Reports system reviewed and no additional complaints, except as documented and as per HPI Endocrine Endocrine: Reports fatigue Allergic/Immunologic Allergic/Immunologic: Denies wheezing Physical Exam General General appearance: alert and in no apparent distress ENT ENT exam: Present mucous membranes moist Expanded ENT Exam Nose exam: Absent sinus tenderness Throat exam: Present other (Pharyngeal erythema noted with PND) Respiratory Respiratory exam: Present normal lung sounds bilaterally; Absent respiratory distress or wheezes Cardiovascular Cardiovascular exam: Present regular rate, normal rhythm and tachycardia Neurological Exam Neurological exam: Present alert, oriented X3 and normal gait Medical Decision Making Livan Inquiry Pt receiving controlled substance: No Livan was queried for this patient: No Vital Signs: 11/30/23 13:55 Temperature 98.4 F Temperature Source Oral Pulse Rate [Right Radial] 102 H Respiratory Rate 18 Blood Pressure [Right Arm] 122/83 Blood Pressure Mean [Right Arm] 96 Blood Pressure Source [Right Arm] Automatic Cuff Blood Pressure Position [Right Arm] Sitting 02 Sat by Pulse Oximetry 100 Oxygen Delivery Method Room Air Lab Data Lab results reviewed: Yes I reviewed the patient's lab results.
[2023-11-30 14:18] LABS: Influenza A, PCR Not Detected (NotDetected); Influenza B, PCR Not Detected (NotDetected)
[2023-11-30 14:22] LABS: UTC Strep Screen (Rapid) Negative (Negative)
[2023-11-30 14:55] LABS: Coronavirus 19, PCR Detected (NotDetected)
[2023-11-30 15:08] VITALS: BP 122/83; PULSE 102; RESP 18; TEMP 36.9; O2SAT 100
== END 2023-11-30 15:08 | disposition home or self-care (01) ==
PROVIDERS: Emergency Provider Nurse Practitioner; PCP Internal Medicine Adolescent Medicine
DX: U07.1 COVID-19 (principal); R53.83 Other fatigue; R09.81 Nasal congestion; M79.18 Myalgia, other site
CPT/HCPCS: 87636; 87880; 99212; 99214; G0463

== ENCOUNTER 2023-12-22 10:37 | Emergency (ER) | payer OTHER, SELFPAY ==
[2023-12-22] VITALS (7 sets, daily range): BP systolic 112–141; BP diastolic 77–103; PULSE 68–98; RESP 12–21; TEMP 36.3–36.7; O2SAT 96–100; BMI 27.4; BMI 30.3
--- NOTE | 2023-12-22 10:57 | PC.NURSE ---
[facility]
--- NOTE | 2023-12-22 10:59 | ECG_ITS ---
APPROVED REPORT Exam: Resting ECG HR:93 bpm ECG Measurements Heart Rate 93 AXES WA 131 P 58 QRSd 113 QRS -58 QT 359 T 77 QTc 410 Conclusion SINUS RHYTHM LEFT ANTERIOR FASCICULAR BLOCK [QRS AXIS <= -45, QR IN I, RS IN II] ANTEROSEPTAL MYOCARDIAL INFARCTION , PROBABLY OLD [40+ ms Q WAVE IN V1-V4] Electronically signed by : LEONA CATHERINE, 12/22/2023 12:41:35
--- NOTE | 2023-12-22 10:59 | PC.NURSE ---
PATIENT SENT TO ER PER Kyle CURTIS APRN FOR FURTHER EVALUATION. REPORT GIVEN TO Az WHITE RN BY Skinny OLMOS RN. PATIENT TRANSPORTED TO ER VIA WHEELCHAIR WITH [facility] STAFF ASSIST
--- NOTE | 2023-12-22 11:00 | ED_ITS ---
Discharge Plan Disposition Patient Disposition: Home, Self-Care Prescriptions Prescriptions: New ondansetron 4 mg tablet,disintegrating 4 mg PO Q6H PRN (Reason: nausea and vomiting) Qty: 10 2RF No Action levothyroxine 200 mcg tablet 150 mcg PO DAILY 90 Days Qty: 68 Patient Comments: TAKE 1 TABLET BY MOUTH EVERY DAY Mirena 20 mcg/24 hours (7 yrs) 52 mg intrauterine device See Rx Instructions .ROUTE .COMPLEX Rx Instructions: IUD multivitamin [Daily Multi-Vitamin] Tablet 1 tab PO DAILY spironolactone 50 mg tablet 50 mg PO BID Mounjaro 7.5 mg/0.5 mL pen injector See Rx Instructions .ROUTE .COMPLEX Patient Comments: INJECT 7.5mg SUBCUTANEOUSLY ONCE A WEEK DIRECTED Rx Instructions: INJECT 7.5mg SUBCUTANEOUSLY ONCE A WEEK DIRECTED Referrals Follow up/Referrals: Amilcar Denis MD [Primary Care Provider] - See instructions Activity Restrictions/Add. Instructions Additional Instructions/Restrictions: Call your family doctor to establish care for this visit to the emergency department and schedule follow-up within 48 hours to ensure improvement. If you have any worsening of your condition or any other concerning signs or symptoms, return to the emergency department or your primary care doctor for further evaluation. Clinical Impressions Clinical Impression: Vomiting and diarrhea Instructions Patient Instructions: DI for Diarrhea and Traveler's Diarrhea -- Adult, DI for Diarrhea and Traveler's Diarrhea -- Child, DI for Nausea -- Adult, DI for Nausea -- Child Discharge ED [place] Bold[place] [facility] [place] General Chief complaint: Nausea/Vomiting/Diarrhea Stated complaint: feels faint, dizziness Mode of Arrival: Ambulatory Source of Information: Patient Limitations: No Limitations Time Seen by Provider: 12/22/23 11:00 Description of Symptoms (Recalled from Triage Doc. by RN): PATIENT REPORTS VOMITING, DIARRHEA, AND DIZZINESS X 4 DAYS. SHE STATES THE LAST 2 DAYS SHE HAS BEEN HAVING EPISODES OF FEELING LIKE SHE IS GOING TO PASS OUT, BUT HAS NOT COMPLETELY PASSED OUT. SHE STATES DURING THOSE EPISODES HER PERIPHERAL VISION STARTS GOING OUT AND PEOPLE AROUND HER FEEL DISTANT. SHE ALSO REPORTS SORENESS/TENDERNESS TO ABDOMEN AND SIDES. HEENT Symptoms (Recalled from RN notes): Yes Resp Symptoms (Recalled from RN notes): No Skin Symptoms (Recalled from RN notes): No MS Symptoms (Recalled from RN notes): No Functional Status (Recalled from RN notes): WNL History of Present Illness Provider Complaint: Patient states that she recently had COVID a few weeks back, States that for the last 4 days she has had bad diarrhea, N/V dizziness and over all not feeling well States that the last couple of day has been worse States that she is unable to eat or drink much of anything and and keep it down, states that at times she feels like she is going to pass out, states that she feels like it is going out and people in front of her feels like they get farther away like tunnel vision and she has to sit down for a minute. States also she is tender and sore in her abdomen and in her right back/side area thinks it may be from the vomiting but today she wasnt any better so she came in Related Data Home Medications Medication Instructions Recorded Confirmed levothyroxine 200 mcg tablet 150 mcg PO DAILY 90 days #68 tabs 06/30/21 11/30/23 levonorgestrel 21 mcg/24 hr (up to See Rx Instructions .Route .COMPLEX 08/12/21 11/30/23 8 years) 52 mg intrauterine device (Mirena) multivitamin (Daily Multi-Vitamin 1 tab PO DAILY 12/10/22 11/30/23 tablet) spironolactone 50 mg tablet 50 mg PO BID 12/10/22 11/30/23 tirzepatide 7.5 mg/0.5 mL See Rx Instructions .Route .COMPLEX 11/30/23 11/30/23 subcutaneous pen injector (Mounjaro) Previous Rx's Medication Instructions Recorded ondansetron 4 mg disintegrating 4 mg PO Q6H PRN nausea and 12/22/23 tablet vomiting #10 tabs Allergies Allergy/AdvReac Type Severity Reaction Status Date / Time No Known Allergies Allergy Verified 11/30/23 14:15 Worker's Comp Is this a Worker's Comp case?: No [facility] Disclaimer: The information contained in this section may have been updated after the patient was seen, as this information can be updated by other users. Medical History Abnormal EKG Atypical angina Diabetes mellitus Dyspnea HLD (hyperlipidemia) Palpitations Surgical History History of Beltran-en-Y gastric bypass S/P dilatation of esophageal stricture Social History Smoking Status: Never smoker second hand exposure: No alcohol intake: never current occupational status: employed Travel in the last 8 weeks: None household members: spouse and children housing: house current occupational exposures/hazards: Yes caffeine: Yes ROS Obtained: Yes All systems reviewed & no additional complaints except as documented and Yes Systems reviewed as appropriate & no additional complaints except as documented Constitutional Constitutional: Reports system reviewed and no additional complaints, except as documented, Reports as per HPI, Denies frequent falls, Reports poor appetite, Reports lethargy and Reports weakness Eyes Eyes: Reports system reviewed and no additional complaints, except as documented and Reports as per HPI ENT Ears, Nose, Mouth, and Throat: Reports system reviewed and no additional complaints, except as documented, Reports as per HPI, Reports dizziness and Reports dry mouth Cardiovascular Cardiovascular: Reports system reviewed and no additional complaints, except as documented, Reports as per HPI and Denies chest pain Respiratory Respiratory: Reports system reviewed and no additional complaints, except as documented and Reports as per HPI Gastrointestinal Gastrointestingal: Reports system reviewed and no additional complaints, except as documented, as per HPI, abdominal pain (reports soreness and tenderness ), diarrhea and nausea Musculoskeletal Musculoskeletal: Reports system reviewed and no additional complaints, except as documented, Reports as per HPI and Reports back pain (achy sore pain in right side/back) Neurologic Neurologic: Reports system reviewed and no additional complaints, except as documented, Reports as per HPI, Denies abnormal speech, Reports dizziness, Denies frequent falls, Denies memory loss, Denies other visual disturbances, Denies seizure-like activity, Denies sensory deficit, Reports weakness and Reports other (near syncope feeling faint) Physical Exam General General appearance: alert and in no apparent distress Respiratory Respiratory exam: Present normal lung sounds bilaterally; Absent respiratory distress Cardiovascular Cardiovascular exam: Present regular rate, normal rhythm and normal heart sounds Abdominal Exam Abdominal exam: Present tenderness (reports mild but feels sore ) Neurological Exam Neurological exam: Present alert and oriented X3 Medical Decision Making Livan Inquiry Pt receiving controlled substance: No Livan was queried for this patient: No Vital Signs: 12/22/23 10:45 Temperature 97.4 F L Temperature Source Oral Pulse Rate [Left Brachial] 98 H Respiratory Rate 21 Blood Pressure [Left Arm] 140/77 Blood Pressure Mean [Left Arm] 98 Blood Pressure Source [Left Arm] Automatic Cuff Blood Pressure Position [Left Arm] Sitting 02 Sat by Pulse Oximetry 100 Oxygen Delivery Method Room Air Lab Data 12/22/23 11:04 12/22/23 11:04 Medical Decision Narrative: Patient reports not being able to keep anything down and having N/V/D, dizziness, near syncope and over all not feeling right x 4 days worse in last couple of days States she has had near syncopal episodes several times in which she feels like her peripheral vision goes out and people close to her look far away and she has to sit down for a min. States she recently had COVID a few weeks ago and her stomach and right side feels sore and tender Discussed with patient and will transfer to the ED for furhter work up and evaluation called the ED and patient was moved to room 1
[2023-12-22 11:33] LABS: Basophils # 0.1 K/mm3 (0-0.2); Basophils % 1.9 % (0.1-2.0); Eosinophils # 0.1 K/mm3 (0.0-0.4); Eosinophils % 1.7 % (0.1-12.0); Hematocrit 44.1 % (37.0-47.0); Hemoglobin 14.5 g/dL (12.2-16.2); Lymphocytes # 0.9 K/mm3 (0.7-4.5); Lymphocytes % 22.4 % (10-50); Mean Corpuscular HGB Conc 32.9 g/dL (31.8-35.4); Mean Corpuscular Hemoglobin 32.4 pg (27.0-31.2); Mean Corpuscular Volume 98.4 fl (81-99); Mean Platelet Volume 9.5 fl (7.4-10.4); Monocytes # 0.4 K/mm3 (0.1-1.0); Monocytes % 8.3 % (1.7-9.3); Neutrophils # 2.8 K/mm3 (1.8-7.8); Neutrophils % 65.8 % (37.0-80.0); Platelet Count 241 K/mm3 (142-424); Red Blood Count 4.48 M/mm3 (4.20-5.40); Red Cell Distribution Width 13.6 % (11.5-17.5); White Blood Count 4.2 K/mm3 (4.8-10.8)
[2023-12-22] MEDS: ONDANSETRON 4MG/2ML VIAL 4 MG IV (11:34)
[2023-12-22] MEDS: LACTATED RINGERS 1000ML 2,000 ML 999 ML IV (11:35)
[2023-12-22 11:36] LABS: Chloride 102 mmol/L (98-107); Potassium 3.6 mmoL/L (3.5-5.1); Sodium 138 mmol/L (136-145)
[2023-12-22 11:38] LABS: Alanine Aminotransferase 34 U/L (12-78); Aspartate Amino Transferase 42 U/L (14-36); Blood Urea Nitrogen 9 mg/dl (7-17); Creatinine Clearance Estimated 102 mL/min (50-200); Estimated Glomerular Filt Rate 67 ml/min (>60); GFR (African American) 81 ML/MIN (>60)
[2023-12-22 11:39] LABS: Albumin Level 4.1 g/dl (3.5-5.0); Albumin/Globulin Ratio 1.4 (1.1-1.8); Alkaline Phosphatase 93 U/L (38-126); Anion Gap 10.6 mEq/L (5-15); Bilirubin,Total 2.2 mg/dl (0.2-1.3); Carbon Dioxide 29 mmol/L (22.0-30.0); Globulin 2.9 g/dL (1.3-3.2); Glucose 127 mg/dl (74-100); Lipase 53 U/L (23-300)
--- NOTE | 2023-12-22 11:42 | PC.NURSE ---
ROUNDED ON PT WAS GIVEN BOTTLE OF WATER AND CUP OF ICE NO OTHER NEEDS AT THIS TIME CALL LIGHT IN REACH
[2023-12-22] MEDS: DICYCLOMINE 10MG CAPSULE 10 MG PO (12:10)
--- NOTE | 2023-12-22 12:23 | ED_ITS ---
Discharge Plan Disposition Patient Disposition: Home, Self-Care Prescriptions Prescriptions: New ondansetron 4 mg tablet,disintegrating 4 mg PO Q6H PRN (Reason: nausea and vomiting) Qty: 10 2RF No Action levothyroxine 200 mcg tablet 150 mcg PO DAILY 90 Days Qty: 68 Patient Comments: TAKE 1 TABLET BY MOUTH EVERY DAY Mirena 20 mcg/24 hours (7 yrs) 52 mg intrauterine device See Rx Instructions .ROUTE .COMPLEX Rx Instructions: IUD multivitamin [Daily Multi-Vitamin] Tablet 1 tab PO DAILY spironolactone 50 mg tablet 50 mg PO BID Mounjaro 7.5 mg/0.5 mL pen injector See Rx Instructions .ROUTE .COMPLEX Patient Comments: INJECT 7.5mg SUBCUTANEOUSLY ONCE A WEEK DIRECTED Rx Instructions: INJECT 7.5mg SUBCUTANEOUSLY ONCE A WEEK DIRECTED Referrals Follow up/Referrals: Amilcar Denis MD [Primary Care Provider] - See instructions Activity Restrictions/Add. Instructions Additional Instructions/Restrictions: Call your family doctor to establish care for this visit to the emergency department and schedule follow-up within 48 hours to ensure improvement. If you have any worsening of your condition or any other concerning signs or symptoms, return to the emergency department or your primary care doctor for further evaluation. Clinical Impressions Clinical Impression: Vomiting and diarrhea Instructions Patient Instructions: DI for Diarrhea and Traveler's Diarrhea -- Adult, DI for Diarrhea and Traveler's Diarrhea -- Child, DI for Nausea -- Adult, DI for Nausea -- Child Discharge ED Provider: Jonny Bolden General Adult HPI General Chief complaint: Nausea/Vomiting/Diarrhea Stated complaint: feels faint, dizziness Time Seen by Provider: 12/22/23 11:00 Mode of Arrival: Ambulatory Source of Information: Patient Limitations: No Limitations Description of Symptoms (Recalled from ER Triage Doc. by RN): PATIENT REPORTS VOMITING, DIARRHEA, AND DIZZINESS X 4 DAYS. SHE STATES THE LAST 2 DAYS SHE HAS BEEN HAVING EPISODES OF FEELING LIKE SHE IS GOING TO PASS OUT, BUT HAS NOT COMPLETELY PASSED OUT. SHE STATES DURING THOSE EPISODES HER PERIPHERAL VISION STARTS GOING OUT AND PEOPLE AROUND HER FEEL DISTANT. SHE ALSO REPORTS SORENESS/TENDERNESS TO ABDOMEN AND SIDES. History of Present Illness HPI narrative: 48-year-old female history of gastric bypass, cholecystectomy, type 2 diabetes, hypertension, hyperlipidemia presenting with multiple complaints. Patient states that she has had vomiting, diarrhea, lightheadedness for the past 3 to 4 days. Nonbloody, nonbilious vomiting and diarrhea. Has tried Zofran, Phenergan without much relief. Unable to tolerate much p.o. intake due to food aversions, appetite decreased and vomiting. States that before episodes of vomiting, she gets tunnel vision, hypersalivation, and abdominal cramping. Currently states that she is so dehydrated she does not believe she can have a bowel movement or vomit. No fevers or chills, urinary symptoms, overt abdominal pain in the absence of vomiting, recent travel, known sick contacts. Please note that above description of symptoms, in this electronic medical record under categorization of recalled from ER triage doctor by RN are reflective of an initial nursing assessment, however, is not reflective of my full history and physical exam that was personally taken and clarified. Consequentially, this preceding description of symptoms, which may include the patient's categorized chief complaint in the EMR, do not reflect my personal clinical impression, and the ultimate description of history of present illness and patient stated complaints should be deferred to this section of the note. Unless stated otherwise or congruent with this section of the note, additional signs, symptoms, or incongruence should be interpreted as inaccurate with my clinical impression. Related Data Home Medications Medication Instructions Recorded Confirmed levothyroxine 200 mcg tablet 150 mcg PO DAILY 90 days #68 tabs 06/30/21 11/30/23 levonorgestrel 21 mcg/24 hr (up to See Rx Instructions .Route .COMPLEX 08/12/21 11/30/23 8 years) 52 mg intrauterine device (Mirena) multivitamin (Daily Multi-Vitamin 1 tab PO DAILY 12/10/22 11/30/23 tablet) spironolactone 50 mg tablet 50 mg PO BID 12/10/22 11/30/23 tirzepatide 7.5 mg/0.5 mL See Rx Instructions .Route .COMPLEX 11/30/23 11/30/23 subcutaneous pen injector (Mounjaro) Previous Rx's Medication Instructions Recorded ondansetron 4 mg disintegrating 4 mg PO Q6H PRN nausea and 12/22/23 tablet vomiting #10 tabs Allergies Allergy/AdvReac Type Severity Reaction Status Date / Time No Known Allergies Allergy Verified 11/30/23 14:15 [facility] Disclaimer: The information contained in this section may have been updated after the patient was seen, as this information can be updated by other users. Medical History Abnormal EKG Atypical angina Diabetes mellitus Dyspnea HLD (hyperlipidemia) Palpitations Surgical History History of Beltran-en-Y gastric bypass S/P dilatation of esophageal stricture Social History Smoking Status: Never smoker second hand exposure: No alcohol intake: never current occupational status: employed Travel in the last 8 weeks: None household members: spouse and children housing: house current occupational exposures/hazards: Yes caffeine: Yes ROS Obtained: Yes All systems reviewed & no additional complaints except as documented Physical Exam General General appearance: alert, in no apparent distress and other (Tired appearing, but clinically well) Head Head exam: atraumatic and normocephalic Eye Eye exam: Present normal appearance, PERRL and EOMI ENT ENT exam: Present mucous membranes dry Neck Neck exam: Present normal inspection, full ROM and trachea midline Respiratory Respiratory exam: Absent respiratory distress, wheezes, stridor, accessory muscle use or prolonged expiratory phase Cardiovascular Cardiovascular exam: Present regular rate and normal rhythm Abdominal Exam Abdominal exam: Present soft; Absent distention, tenderness, guarding, rebound or rigidity Extremities Exam Extremities exam: Absent edema Neurological Exam Neurological exam: Present alert, oriented X3, CN II-XII intact and normal gait; Absent motor sensory deficit Skin Skin exam: Present warm and dry; Absent diaphoresis or erythema Medical Decision Making Medical Records Medical records reviewed: Yes I reviewed the patient's medical records. Livan Inquiry Pt receiving controlled substance: No Livan was queried for this patient: No Vital Signs: 12/22/23 10:45 12/22/23 10:55 12/22/23 11:31 Temperature 97.4 F L 98.0 F Temperature Source Oral Oral Pulse Rate 81 Pulse Rate [Left Brachial] 98 H 92 H Respiratory Rate 21 18 12 Blood Pressure 120/80 Blood Pressure [Left Arm] 140/77 141/103 H Blood Pressure Mean [Left Arm] 98 115 Blood Pressure Source [Left Arm] Automatic Cuff Automatic Cuff Blood Pressure Position [Left Arm] Sitting Sitting 02 Sat by Pulse Oximetry 100 100 96 Oxygen Delivery Method Room Air Room Air Room Air 12/22/23 12:00 12/22/23 12:30 12/22/23 13:00 Temperature Temperature Source Pulse Rate 74 68 Pulse Rate [Left Brachial] Respiratory Rate 14 12 15 Blood Pressure 131/82 112/81 124/84 Blood Pressure [Left Arm] Blood Pressure Mean [Left Arm] Blood Pressure Source [Left Arm] Blood Pressure Position [Left Arm] 02 Sat by Pulse Oximetry 100 98 Oxygen Delivery Method Room Air Room Air Lab Data Lab Results 12/22/23 11:04: WBC 4.2 L, RBC 4.48, Hgb 14.5, Hct 44.1, MCV 98.4, MCH 32.4 H, MCHC 32.9, RDW 13.6, Plt Count 241, MPV 9.5, Neut % (Auto) 65.8, Lymph % (Auto) 22.4, Bartholomew % (Auto) 8.3, Eos % (Auto) 1.7, Baso % (Auto) 1.9, Neut # (Auto) 2.8, Lymph # (Auto) 0.9, Bartholomew # (Auto) 0.4, Eos # (Auto) 0.1, Baso # (Auto) 0.1, Sodium 138, Potassium 3.6, Chloride 102, Carbon Dioxide 29, Anion Gap 10.6, BUN 9, Creatinine 0.90, Estimated Creat Clear 102, Estimated GFR 67, Est GFR ( Amer) 81, Glucose 127 H, Calcium 9.0, Total Bilirubin 2.2 H, AST 42 H, ALT 34, Alkaline Phosphatase 93, Total Protein 7.0, Albumin 4.1, Globulin 2.9, Albumin/Globulin Ratio 1.4, Lipase 53 12/22/23 13:32: Urine Color Yellow, Urine Appearance Clear, Urine pH 6.0, Ur Specific Blackburn 1.010, Urine Protein Negative, Urine Glucose (UA) Negative, Urine Ketones Negative, Urine Blood Negative, Urine Nitrate Negative, Urine Bilirubin Negative, Urine Urobilinogen 1.0, Ur Leukocyte Esterase Negative 12/22/23 11:04 12/22/23 11:04 Orders (Tests/Meds): ED MEDICATIONS Discontinued Medications Generic Name Dose Route Start Last Admin Trade Name Freq PRN Reason Stop Dose Admin Dicyclomine HCl 10 mg 12/22/23 12:10 12/22/23 12:10 Dicyclomine 10mg Capsule PO 12/22/23 12:11 10 mg ONCE ONE Administration Lactated Ringer's 2,000 mls @ 999 mls/hr 12/22/23 11:25 12/22/23 11:35 Lactated Ringer's 1000 Ml Bag IV 12/22/23 13:25 999 mls/hr .Q2H1M ONE Administration Ondansetron HCl 4 mg 12/22/23 11:25 12/22/23 11:34 Ondansetron 4mg/2ml Vial IV 12/22/23 11:26 4 mg ONCE ONE Administration ORDERS Category Date Time Status POCUS Point of Care (ER Only) Stat Exams 12/22/23 12:22 Completed CBC w/Auto Diff [Complete Blood Count Auto Diff] Stat Lab 12/22/23 11:04 Completed CMP [Comprehensive Metabolic Panel] Stat Lab 12/22/23 11:04 Completed Diarrhea 6-11 Panel, Cdiff PCR Stat Lab 12/22/23 11:25 Ordered Lipase Stat Lab 12/22/23 11:04 Completed UA [Urinalysis and Microscopic] Stat Lab 12/22/23 13:32 Results Medical Decision Narrative: 48-year-old female history of gastric bypass, cholecystectomy, type 2 diabetes, hypertension, hyperlipidemia presenting with multiple complaints. Patient states that she has had vomiting, diarrhea, lightheadedness for the past 3 to 4 days. Nonbloody, nonbilious vomiting and diarrhea. Has tried Zofran, Phenergan without much relief. Unable to tolerate much p.o. intake due to food aversions, appetite decreased and vomiting. States that before episodes of vomiting, she gets tunnel vision, hypersalivation, and abdominal cramping. Currently states that she is so dehydrated she does not believe she can have a bowel movement or vomit. No fevers or chills, urinary symptoms, overt abdominal pain in the absence of vomiting, recent travel, known sick contacts. History was obtained via conversation with patient. On arrival, patient hemodynamically stable, alert, oriented x4, appropriate, GCS 15, moving all extremities spontaneously, pupils equal and reactive to light. Full physical exam performed and significant for tired appearing woman, but clinically well and in no acute distress. Abdomen is soft, nontender, nondistended. States that it is most tender epigastrium and suprapubic areas. No objective tenderness. Not peritonitic. Nearly tachycardic with pulse sitting in high 80s, low 90s at rest. Cardiopulmonary exam within normal limits. Differential includes gastritis, enteritis, pancreatitis, metabolic abnormality, dehydration, orthostasis, vasovagal presyncope, among others. Patient was given 2 L IV fluids, IV Zofran for symptomatic management and correction of underlying abnormalities. Workup independently interpreted and significant for nonactionable CBC, chemistry within normal limits. Patient's total bilirubin mildly elevated at 2.2, I feel this is likely secondary to dehydration given other LFTs within normal limits. Lipase also negative. Independent interpretation of EKG shows sinus rhythm [address] or T wave changes concerning for acute ischemia. Patient does have left anterior fascicular block, but no acute findings. PA, QRS, QT intervals within normal limits. Leftward axis. Urinalysis negative. On reevaluation, patient feeling much better. Given patient presentation, workup, history, this most likely represents gastroenteritis. Because patient at baseline without signs or symptoms of clinical decompensation, deemed appropriate for discharge. Results were relayed to patient who voiced understanding and were agreeable to outpatient management and follow up. I discussed my clinical impression with patient and answered all questions. At this time, the evidence for any other entities in the differential is insufficient to warrant any further testing or ED observation. This was explained as well. Advisory was given that persistent or worsening symptoms require further evaluation. I confirmed the understanding of this discussion. Critical Care Critical Care Time Critical Care Time: No
--- NOTE | 2023-12-22 12:50 | PC.NURSE ---
ANIA IS ROUNDING ON PT
[2023-12-22 13:36] LABS: Microscopic, Urine URINE MICROSCOPIC (MICROSCOPIC)
[2023-12-22 13:41] LABS: Appearance,Urine CLEAR (Clear); Bilirubin,Urine Negative (Negative); Blood, Urine Negative (Negative); Color,Urine YELLOW (Yellow); Glucose,Urine (UA) Negative (Negative); Ketones,Urine Negative (Negative); Leukocyte Esterase,Urine Negative (Negative); Nitrate,Urine Negative (Negative); Protein,Urine Negative (Negative)
[2023-12-22 14:22] LABS: Bacteria,Urine 1+ /lpf
== END 2023-12-22 14:20 | disposition home or self-care (01) ==
LOC: UTC 10:44 → ER 10:52
PROVIDERS: Emergency Provider Emergency Medicine; PCP Internal Medicine Adolescent Medicine
DX: I44.4 Left anterior fascicular block (principal); R11.2 Nausea with vomiting, unspecified; R19.7 Diarrhea, unspecified; E11.9 Type 2 diabetes mellitus without complications; I10 Essential (primary) hypertension; E78.5 Hyperlipidemia, unspecified; Z98.84 Bariatric surgery status; Z79.85 Long-term (current) use of injectable non-insulin antidiabetic drugs
CPT/HCPCS: 80053; 81001; 83690; 85025; 93005; 96361; 96374; 99284; J2405

== ENCOUNTER 2024-03-27 14:53 | Outpatient (CLI) | payer OTHER, SELFPAY ==
[2024-03-27 13:27] LABS: Microscopic, Urine URINE MICROSCOPIC (MICROSCOPIC)
[2024-03-27 14:10] LABS: Appearance,Urine CLEAR (Clear); Basophils # 0.1 K/mm3 (0-0.2); Basophils % 1.4 % (0.1-2.0); Bilirubin,Urine Negative (Negative); Blood, Urine Negative (Negative); Color,Urine YELLOW (Yellow); Eosinophils # 0.1 K/mm3 (0.0-0.4); Eosinophils % 1.6 % (0.1-12.0); Glucose,Urine (UA) Negative (Negative); Hematocrit 48.1 % (37.0-47.0); Hemoglobin 15.4 g/dL (12.2-16.2); Ketones,Urine Negative (Negative); Leukocyte Esterase,Urine TRACE (Negative); Lymphocytes # 2.2 K/mm3 (0.7-4.5); Lymphocytes % 39.2 % (10-50); Mean Corpuscular HGB Conc 31.9 g/dL (31.8-35.4); Mean Corpuscular Hemoglobin 31.3 pg (27.0-31.2); Mean Corpuscular Volume 98.2 fl (81-99); Mean Platelet Volume 10.4 fl (7.4-10.4); Microalbumin/Creatinine Ratio 6.2; Monocytes # 0.4 K/mm3 (0.1-1.0); Monocytes % 6.7 % (1.7-9.3); Neutrophils # 2.8 K/mm3 (1.8-7.8); Neutrophils % 51.2 % (37.0-80.0); Nitrate,Urine Negative (Negative); Platelet Count 259 K/mm3 (142-424); Protein,Urine Negative (Negative); Red Cell Distribution Width 13.6 % (11.5-17.5); Specific Gravity, Urine 1.025 (1.005-1.030); Urobilinogen,Urine 0.2 EU/dl (0.2); White Blood Count 5.5 K/mm3 (4.8-10.8)
[2024-03-27 14:14] LABS: Creatinine,Urine Random 208 mg/dL (Not Estab.)
[2024-03-27 14:38] LABS: Alanine Aminotransferase 15 U/L (12-78); Albumin Level 4.4 g/dl (3.5-5.0); Albumin/Globulin Ratio 1.5 (1.1-1.8); Alkaline Phosphatase 96 U/L (38-126); Anion Gap 13.2 mEq/L (5-15); Aspartate Amino Transferase 25 U/L (14-36); Bilirubin,Total 1.3 mg/dl (0.2-1.3); Blood Urea Nitrogen 10 mg/dl (7-17); Calcium 9.1 mg/dl (8.4-10.2); Carbon Dioxide 26 mmol/L (22.0-30.0); Chloride 105 mmol/L (98-107); Chol/HDL Ratio 3.6 (1-3.5); Cholesterol 220 mg/dl (140-200); Estimated Glomerular Filt Rate 76 ml/min (>60); GFR (African American) 92 ML/MIN (>60); Globulin 2.9 g/dL (1.3-3.2); Glucose 99 mg/dl (74-100); HDL Cholesterol 61 mg/dl (40-60); Magnesium 2.1 mg/dl (1.6-2.3); Potassium 4.2 mmoL/L (3.5-5.1); Sodium 140 mmol/L (136-145); Total Protein,Serum 7.3 g/dl (6.3-8.2); Triglycerides 100 mg/dl (30-150); Uric Acid 6.2 mg/dl (2.5-6.2); VLDL Cholesterol 20 mg/dL (0-40)
[2024-03-27 14:43] LABS: WBC,Urine Occasional #/hpf (0-3)
[2024-03-27 14:44] LABS: Bacteria,Urine Trace /lpf; Squamous Epithelial Cell,Urine Occasional #/hpf (0-5); Yeast,Urine Occasional /lpf
[2024-03-27 14:55] LABS: 25-OH Vitamin D, Total 36.6 ng/mL (30-100)
[2024-03-27 15:28] LABS: Vitamin B12 231 pg/mL (239-931)
[2024-03-27 15:57] LABS: Iron 131 ug/dL (37-170)
[2024-03-27 16:06] LABS: Total Iron Binding Capacity 384 ug/dL (265-497)
[2024-03-27 16:34] LABS: Ferritin 17.6 ng/ml (6.24-137)
[2024-03-27 22:20] LABS: Hemoglobin A1C 6.5 % (4.0-6.0)
[2024-03-28 08:48] LABS: Estradiol 6.6 pg/mL (.); FSH 57.8 mIU/mL (.); LH 43.8 mIU/mL (.); Progesterone 0.1 ng/mL (.)
[2024-04-02 18:20] LABS: Estrogen 78 pg/mL (.)
[2024-04-05 03:37] LABS: Interpretation: Negative (.); e13a2 (b2a2) transcript <0.0032 % % (.); e14a2 (b3a2) transcript <0.0032 % % (.); e1a2 transcript <0.0032 % % (.)
[2024-04-10 10:19] LABS: Antinuclear Antibodies (ANA) Negative; PDF: SCANNED IMAGE
== END 2024-03-27 23:59 | disposition home or self-care (01) ==
LOC: LAB.DROPOF 14:59
PROVIDERS: PCP Nurse Practitioner Family; Visit Provider Nurse Practitioner Family
DX: E61.1 Iron deficiency (principal); E03.9 Hypothyroidism, unspecified; Z13.220 Encounter for screening for lipoid disorders; M25.441 Effusion, right hand; D51.0 Vitamin B12 deficiency anemia due to intrinsic factor deficiency; R45.86 Emotional lability; E11.69 Type 2 diabetes mellitus with other specified complication; Z79.4 Long term (current) use of insulin; R00.2 Palpitations; M19.049 Primary osteoarthritis, unspecified hand; Z80.41 Family history of malignant neoplasm of ovary; R53.83 Other fatigue
CPT/HCPCS: 80050; 80053; 80061; 81001; 81206; 82043; 82306; 82570; 82607; 82670; 82672; 82728; 83001; 83002; 83036; 83540; 83550; 83735; 84144; 84439; 84443; 84550; 85025; 86038; 86225; 86235; 87086

== ENCOUNTER 2024-04-18 16:05 | Outpatient (CLI) | payer OTHER, SELFPAY ==
--- NOTE | 2024-04-18 16:06 | MM_ITS ---
PROCEDURE INFORMATION: Exam: MG Bilateral Screening 3D Mammography Exam date and time: 04/18/2024 3:52 PM Age: 48 years old Clinical indication: Screening mammogram TECHNIQUE: Imaging protocol: Bilateral Screening tomosynthesis and 2D mammography including computer-aided detection (CAD) when performed. COMPARISON: 1. MG MM DIG MAMM BI DX W/CAD 07/29/2022 2:44 PM 2. MG MM DIG MAMM DX UNILAT LT CAD 02/13/2022 2:13 PM 3. MG MM DIG MAMM DX UNILAT LT CAD 07/21/2021 2:54 PM 4. MG MM DIG SCREENING MAMM BI W/CAD 07/17/2021 3:26 PM FINDINGS: MAMMOGRAPHY: Breast composition: There are scattered areas of fibroglandular density. Mass: None. Architectural distortion: No new or suspicious architectural distortion. Calcifications: No new or suspicious calcifications are present Asymmetric density: No new or suspicious asymmetric density is present Skin thickening: None. Axillary adenopathy: None. IMPRESSION: No mammographic evidence of malignancy. Recommend annual screening mammography unless otherwise clinically indicated. ASSESSMENT: BI-RADS category 1: Negative.
== END 2024-04-18 23:59 | disposition home or self-care (01) ==
LOC: RAD 16:05
PROVIDERS: PCP Nurse Practitioner Family; Visit Provider Nurse Practitioner Family
DX: Z12.31 Encounter for screening mammogram for malignant neoplasm of breast (principal)
CPT/HCPCS: 77063; 77067